=== PATIENT | female | born 1945 | race Caucasian/White ===

== ENCOUNTER 2017-05-05 09:41 | Outpatient (CLI) | payer MEDICARE ==
--- NOTE | 2017-05-05 12:54 | MMO ---
BILATERAL SCREENING MAMMOGRAMS: DATE: 05/05/17 Reference made to prior mammograms dating back to May 2014. This patient's mammogram was interpreted with the assistance of computer-aided detection. FINDINGS: There is heterogeneously dense breast parenchyma bilaterally, limiting the sensitivity of mammograph y. Bilateral biopsy marking clips are again seen. There is vascular calcification as well as parenchyma l calcification involving each breast. Stable asymmetric density of the outer right breast anterior to middle depth present. IMPRESSION: BIRADS 2: Benign Finding(s) Annual screening mammography is recommended. POS: PO
== END 2017-05-05 09:42 | disposition home or self-care (01) ==
LOC: SCSMAMMO 09:41
PROVIDERS: ATTEND Family Medicine
DX: Z12.31 Encounter for screening mammogram for malignant neoplasm of breast (principal)
CPT/HCPCS: 77067; G0202

== ENCOUNTER 2018-05-12 12:11 | Outpatient (CLI) | payer MEDICARE ==
--- NOTE | 2018-05-12 16:37 | MMO ---
BILATERAL SCREENING MAMMOGRAMS: Date: 05/12/18 Comparison made to prior exams from 2016 and 2017. This patient's mammogram was interpreted with the assistance of computer-aided detection. FINDINGS: Heterogeneously dense glandular pattern. There are benign-appearing calcifications. There are biopsy localization markers again seen in both breasts. Scattered asymmetric densities in the right breast r emain stable. There are benign-appearing calcifications with vascular calcifications. No significant interval change. Recommend one year follow-up. IMPRESSION: BIRADS 2: Benign Finding(s) POS: PO
== END 2018-05-12 12:12 | disposition home or self-care (01) ==
LOC: SCSMAMMO 12:11
PROVIDERS: ATTEND Family Medicine
DX: Z12.31 Encounter for screening mammogram for malignant neoplasm of breast (principal)
CPT/HCPCS: 77067

== ENCOUNTER 2019-05-14 11:36 | Outpatient (CLI) | payer MEDICARE ==
--- NOTE | 2019-05-14 13:09 | MMO ---
Bilateral MAMMO Bilat Screen [facility]. CLINICAL HISTORY: Patient is 74 years old and is seen for screening. The patient has no family history of breast cancer. The patient has no personal history of cancer. VIEWS: The views performed were: bilateral craniocaudal with tomosynthesis and bilateral mediolateral oblique with tomosynthesis. FILMS COMPARED: The present examination has been compared to prior imaging studies performed at [facility] on 04/29/2016, 05/05/2017 and 05/12/2018. This study has been interpreted with the assistance of computer-aided detection. MAMMOGRAM FINDINGS: There are scattered fibroglandular densities. There are biopsy clips seen in both breasts. There are no suspicious masses, suspicious calcifications, or new areas of architectural distortion. IMPRESSION: THERE IS NO MAMMOGRAPHIC EVIDENCE OF MALIGNANCY. A ROUTINE FOLLOW-UP MAMMOGRAM IN 1 YEAR IS RECOMMENDED. THE RESULTS OF THIS EXAM WERE SENT TO THE PATIENT. ACR BI-RADS Category 2 - Benign finding MAMMOGRAPHY NOTE: 1. A negative mammogram report should not delay a biopsy if a dominant of clinically suspicious mass is present. 2. Approximately 10% to 15% of breast cancers are not detected by mammography. 3. Adenosis and dense breasts may obscure an underlying neoplasm. Reported by: ROSANGELA THOMPSON MD Electonically Signed: [id number]
--- NOTE | 2019-05-14 17:44 | BD ---
Exam: DEXA Bone Density Indications: Post-menopausal screening. Lumbar Spine: BMD (g/cm2) L1 0.862 T-Score: -1.2 L2 0.930 T-Score: -0.9 L3 1.091 T-Score: 0.1 L4 1.019 T-Score: -0.4 L1-L4 0.981 T-Score: -0.6 Femoral Neck: 0.662 T-Score: -1.7 Total Femur: 0.825 T-Score: -1.0 Impression: 1. Bone mineral density lumbar spine within normal range. 2. Bone mineral density of the femoral neck indicates osteopenia. 10-year fracture risk: Major osteoporotic fracture: 8.1% Hip fracture: 1.2% POS: [facility]
== END 2019-05-14 11:37 | disposition home or self-care (01) ==
LOC: BICMAMMO 11:36
PROVIDERS: ATTEND Family Medicine
DX: Z12.31 Encounter for screening mammogram for malignant neoplasm of breast (principal); M85.859 Other specified disorders of bone density and structure, unspecified thigh
CPT/HCPCS: 77063; 77067; 77080

== ENCOUNTER 2021-06-24 12:04 | Outpatient (CLI) | payer MEDICARE ==
[2021-06-24 13:14] LABS: #Basophils 0.1 10x3/uL (0.0-0.2); #Eosinphils 0.2 10x3/uL (0.0-0.5); #Monocytes 0.4 10x3/uL (0.0-1.1); #Neutrophils 3.1 10x3/uL (1.5-8.4); %Basophils 1.4 % (0.0-2.0); %Eosinophils 3.7 % (0.0-6.0); %Lymphocytes 32.1 % (18.0-47.0); %Monocytes 7.8 % (0.0-10.0); %Neutrophils 54.8 % (40.0-75.0); Hemoglobin 12.8 g/dL (12.0-15.5); Mean Corpuscular Hemoglobin 30.6 pg (27.0-33.0); Mean Corpuscular Volume 95.7 fl (81.6-98.3); Mean Platelet Volume 11.9 fl (7.4-10.4); Platelet Count 230 10x3/uL (150-450); RBC Distribution Width 12.8 % (11.5-14.5); Red Blood Cell (RBC) Count 4.18 10x6/uL (3.90-5.03); White Blood Cell (WBC) Count 5.6 10x3/uL (3.5-10.5)
[2021-06-24 13:29] LABS: Anion Gap 15 mmol/L (10-20); BUN (Urea Nitrogen) 12 mg/dL (9.8-20.1); Calc. Creatinine Clearance 0 mL/min (70-130); Calcium 9.5 mg/dL (7.8-10.44); Carbon Dioxide 27 mmol/L (23-31); Chloride 106 mmol/L (98-107); Glucose 89 mg/dL (83-110); Potassium 5.6 mmol/L (3.5-5.1); Sodium 142 mmol/L (136-145)
[2021-06-25 21:05] LABS: SARS-CoV-2 PCR by NAA Not Detected (NotDetected)
== END 2021-06-24 12:05 | disposition home or self-care (01) ==
LOC: LABBT 12:04
PROVIDERS: ATTEND Specialist
DX: Z01.818 Encounter for other preprocedural examination (principal); C50.919 Malignant neoplasm of unspecified site of unspecified female breast; Z20.822 Contact with and (suspected) exposure to COVID-19
CPT/HCPCS: 71046; 80048; 85025; U0003; U0005

== ENCOUNTER 2021-06-29 09:05 | Day surgery (SDC) | payer MEDICARE ==
[2021-06-24 09:00] VITALS: BMI 23.8
[2021-06-29] MEDS ORDERED: ceFAZolin Sodium (SDC) 2 GM/100 ML BAG ONE (11:14)
[2021-06-29] MEDS ORDERED: Ketorolac Tromethamine 30 MG/ML VIAL ONE (11:14)
[2021-06-29] MEDS ORDERED: Bupivacaine 0.25% HCL 30 ML VIAL ONE (11:44)
[2021-06-29] MEDS ORDERED: Isosulfan Blue 50 MG/5 ML VIAL ONE (11:44)
[2021-06-29] MEDS ORDERED: Lidocaine 1% w/Epinephrine 1:100K 20 ML VIAL ONE (11:44)
[2021-06-29 12:15] LABS: Anion Gap 11 mmol/L (10-20); BUN (Urea Nitrogen) 10 mg/dL (9.8-20.1); Calc. Creatinine Clearance 57 mL/min (70-130); Calcium 9.5 mg/dL (7.8-10.44); Carbon Dioxide 31 mmol/L (23-31); Chloride 105 mmol/L (98-107); Glucose 81 mg/dL (83-110); Potassium 4.2 mmol/L (3.5-5.1); Sodium 143 mmol/L (136-145)
[2021-06-29] MEDS ORDERED: Fentanyl 100 MCG/2 ML VIAL ONE ×2 (12:29→13:07)
[2021-06-29] MEDS ORDERED: Midazolam HCl 2 mg/2 ml Vial ONE (12:29)
[2021-06-29] MEDS ORDERED: Dexamethasone 20 MG/5 ML VIAL ONE (13:34)
[2021-06-29] MEDS ORDERED: ePHEDrine 50 MG/ML VIAL ONE (13:34)
[2021-06-29] MEDS ORDERED: PROPOFOL 200 MG/20 ML VIAL ONE (13:34)
[2021-06-29] MEDS ORDERED: Ondansetron PF 4 MG/2 ML Vial ONE (13:34)
[2021-06-29] MEDS ORDERED: Lidocaine 1% PF 5 ML VIAL ONE (13:34)
[2021-06-29] MEDS ORDERED: PHENYLEPHRINE-NS 100 MCG/ML 10 ML SYRINGE ONE (13:34)
[2021-06-29] MEDS ORDERED: HYDROcodone/Acetaminophen 5/325 mg Tablet ONE (16:19)
== END 2021-06-29 16:59 | disposition home or self-care (01) ==
LOC: SDC 09:05
PROVIDERS: ATTEND Specialist
PROC: 0HBU0ZZ Excision of Left Breast, Open Approach (ICD-10-PCS; principal; 2021-06-29)
PROC: 07B60ZX Excision of Left Axillary Lymphatic, Open Approach, Diagnostic (ICD-10-PCS; 2021-06-29)
DX: C50.412 Malignant neoplasm of upper-outer quadrant of left female breast (principal); E06.3 Autoimmune thyroiditis; I47.1 Supraventricular tachycardia; Z17.0 Estrogen receptor positive status [ER+]; Z79.899 Other long term (current) drug therapy
CPT/HCPCS: 19301; 38525; 38900; 76098; 78195; 80048; A9541; C1713; Q9968; 36415; 88307; 88342; J0690; J1100; J1885; J2250; J2405; J2704; J3010; J3490; S0020

== ENCOUNTER → 2021-11-03 | Day surgery (SDC) | payer MEDICARE ==
[2021-10-29 13:06] VITALS: BMI 23.8
[~2021-11-03] MED LIST: Fentanyl 100 MCG/2 ML VIAL ONE; Heparin 10,000 UNITS/ 10 ML VIAL ONE; Heparin 25,000 units/D5W 0 ML ONE; Isoproterenol 0.2 MG/1 ML AMP ONE; Lidocaine 1% PF 5 ML VIAL ONE; PHENYLEPHRINE-NS 100 MCG/ML 10 ML SYRINGE ONE; PROPOFOL 200 MG/20 ML VIAL ONE; Propofol 500 MG/50 ML VIAL ONE; Protamine Sulfate 50 MG/5 ML VIAL ONE
[2021-11-03 08:59] LABS: Anion Gap 13 mmol/L (10-20); BUN (Urea Nitrogen) 14 mg/dL (9.8-20.1); Calc. Creatinine Clearance 59 mL/min (70-130); Calcium 8.9 mg/dL (7.8-10.44); Carbon Dioxide 26 mmol/L (23-31); Chloride 105 mmol/L (98-107); Glucose 89 mg/dL (83-110); Potassium 4.7 mmol/L (3.5-5.1); Sodium 139 mmol/L (136-145)
== END ==
LOC: SDC 07:52
PROVIDERS: ATTEND Internal Medicine Cardiovascular Disease
PROC: 4A023FZ Measurement of Cardiac Rhythm, Percutaneous Approach (ICD-10-PCS; principal; 2021-11-03)
PROC: 4A0234Z Measurement of Cardiac Electrical Activity, Percutaneous Approach (ICD-10-PCS; 2021-11-03)
DX: I47.1 Supraventricular tachycardia (principal); I25.10 Atherosclerotic heart disease of native coronary artery without angina pectoris; E78.5 Hyperlipidemia, unspecified; E06.3 Autoimmune thyroiditis; Z79.811 Long term (current) use of aromatase inhibitors; Z79.899 Other long term (current) drug therapy
CPT/HCPCS: 80048; 93005; 93613; 93621; 93623; C1730; C1760; 93620; J1644; J2704; J2720; J3010

== ENCOUNTER 2022-08-11 09:47 | Outpatient (CLI) | payer MEDICARE | END 2022-08-11 09:48 | disposition home or self-care (01) | LOC: BICRAD 09:47 | PROVIDERS: ATTEND Radiology Radiation Oncology | DX: C50.919 Malignant neoplasm of unspecified site of unspecified female breast (principal); R91.1 Solitary pulmonary nodule | CPT/HCPCS: 71046 ==

== ENCOUNTER 2022-08-30 09:18 | Outpatient (CLI) | payer MEDICARE | END 2022-08-30 09:19 | disposition home or self-care (01) | LOC: ULT 09:18 | PROVIDERS: ATTEND Physician Assistant Medical | DX: R10.10 Upper abdominal pain, unspecified (principal); K44.9 Diaphragmatic hernia without obstruction or gangrene; K82.4 Cholesterolosis of gallbladder; K86.89 Other specified diseases of pancreas | CPT/HCPCS: 76705 ==

== ENCOUNTER 2023-08-18 13:08 | Outpatient (CLI) | payer MEDICARE | END 2023-08-18 13:09 | disposition home or self-care (01) | LOC: SCSRAD 13:08 | PROVIDERS: ATTEND Family Medicine | DX: R09.81 Nasal congestion (principal) | CPT/HCPCS: 70220; 87635 ==